=== PATIENT | male | born 1960 | race Caucasian/White ===

== ENCOUNTER 2017-07-26 20:28 | Emergency (ER) | payer OTHER, SELFPAY ==
--- NOTE | 2017-07-26 21:31 | CT ---
CT BRAIN WITHOUT CONTRAST 07/26/17 HISTORY: Trauma. Headache. FINDINGS: No evidence of infarct, hemorrhage, or midline shift is seen. The ventricular size is normal and the basilar cisterns patent. A arachnoid cyst is seen in the right posterior fossa. The bony calvarium is intact. There is mucosal disease in the paranasal sinuses. A small air fluid level is seen in the ri ght maxillary sinus. IMPRESSION: No CT evidence of acute intracranial process. POS: [facility]
--- NOTE | 2017-07-26 21:42 | CT ---
CT CERVICAL SPINE WITH CORONAL AND SAGITTAL REFORMATIONS: 07/26/17 HISTORY: Trauma. Neck pain. FINDINGS/IMPRESSION: No acute fracture of subluxation is seen. There is mucosal disease in the paranasal sinuses. A small air fluid level is seen in the right maxillary sinus. POS: [facility]
--- NOTE | 2017-07-26 21:47 | RAD ---
THORACIC SPINE THREE VIEWS: 07/26/17 HISTORY: Trauma, back pain. FINDINGS/IMPRESSION: No acute fracture or subluxation is identified. POS: [facility]
== END 2017-07-26 21:49 ==
LOC: NAV ERS 20:28
DX: S06.0X0A Concussion without loss of consciousness, initial encounter (principal); S16.1XXA Strain of muscle, fascia and tendon at neck level, initial encounter; F17.210 Nicotine dependence, cigarettes, uncomplicated; F10.129 Alcohol abuse with intoxication, unspecified; V43.52XA Car driver injured in collision with other type car in traffic accident, initial encounter
CPT/HCPCS: 36415; 70450; 72072; 72125

== ENCOUNTER 2019-05-20 10:21 | Emergency (ER) | payer SELFPAY ==
--- NOTE | 2019-05-20 11:16 | RAD ---
Exam: Chest 2 views HISTORY:Cough Comparison: None FINDINGS: Lungs: No masses or consolidation. Cardiac silhouette: Normal size Pulmonary vessels: Normal Pleural Spaces: Clear Pneumothorax: None Osseous abnormalities: None of acuity. IMPRESSION: No focal consolidation.
== END 2019-05-20 12:00 | disposition home or self-care (01) ==
LOC: NAV ERS 10:21
DX: J20.9 Acute bronchitis, unspecified (principal); Z77.120 Contact with and (suspected) exposure to mold (toxic); J32.0 Chronic maxillary sinusitis; K04.7 Periapical abscess without sinus; K02.9 Dental caries, unspecified; K05.10 Chronic gingivitis, plaque induced; F17.210 Nicotine dependence, cigarettes, uncomplicated
CPT/HCPCS: 71046; 94640; J7620

== ENCOUNTER 2020-10-15 02:42 | Observation (INO) | payer OTHER ==
[2020-10-15] MEDS ORDERED: Sodium Chloride 0.9% 1,000 ML ONE (03:26)
[2020-10-15 03:32] LABS: Acetaminophen Less than 6.0 mcg/mL (10.0-30.0); Alcohol 66 mg/dL (Less than 10); Carbon Dioxide 23 mmol/L (22-29); Chloride 98 mmol/L (98-107); Potassium 3.6 mmol/L (3.5-5.1); Salicylate Less than 8.0 mg/dL (15.0-30.0); Sodium 136 mmol/L (136-145)
[2020-10-15 03:33] LABS: Anion Gap 18 mmol/L (10-20); BUN (Urea Nitrogen) Less than 4 mg/dL (8.4-25.7)
[2020-10-15 03:34] LABS: Albumin 4.1 g/dL (3.5-5.0); Bilirubin, Total 1.3 mg/dL (0.2-1.2); Calc. Creatinine Clearance 0 mL/min (70-130); Calcium 9.1 mg/dL (7.8-10.44); Globulin 2.6 g/dL (2.4-3.5); Glucose 98 mg/dL (70-105); Protein, Total 6.7 g/dL (6.0-8.3)
[2020-10-15 03:35] LABS: ALT (SGPT) 135 U/L (8-55); AST (SGOT) 185 U/L (5-34); Alkaline Phosphatase 61 U/L (40-110)
[2020-10-15 03:38] LABS: %Basophils 1.7 % (0.0-1.0); %Eosinophils 8.7 % (0.0-10.0); %Lymphocytes 32.7 % (21.0-51.0); %Monocytes 8.1 % (0.0-10.0); %Neutrophils 48.7 % (42.0-75.0); Hemoglobin 14.4 g/dL (14.0-18.0); Manual Diff?? NO; Mean Corpuscular HGB CONC 32.3 g/dL (32.0-36.0); Mean Corpuscular Hemoglobin 30.4 pg (27.0-31.0); Mean Corpuscular Volume 94.2 fL (78.0-98.0); Mean Platelet Volume 7.4 fL (7.4-10.4); Platelet Count 150 thou/uL (130-400); RBC Distribution Width 13.4 % (11.5-14.5); Red Blood Cell (RBC) Count 4.72 mill/uL (4.70-6.10); White Blood Cell (WBC) Count 5.7 thou/uL (4.8-10.8)
[2020-10-15] MEDS ORDERED: Ondansetron PF 4 MG/2 ML Vial ONE (03:38)
[2020-10-15 03:39] LABS: #Basophils 0.1 thou/uL (0.0-0.2); #Eosinphils 0.5 thou/uL (0.0-0.7); #Lymphocytes 1.9 thou/uL (1.20-3.40); #Monocytes 0.5 thou/uL (0.11-0.59); #Neutrophils 2.8 thou/uL (1.40-6.50)
[2020-10-15 04:08] LABS: Bilirubin Small (Negative); Blood, Urine Negative (Negative); Clarity Clear (Clear); Glucose, Urine (Dipstick) Negative (Negative); Ketone, Urine Trace mg/dL (Negative); Leukocyte Negative (Negative); Nitrite Negative (Negative); Protein, Urine (Dipstick) Trace mg/dL (Neg-Trace); Urobilinogen 0.2 mg/dL (Less than 2); pH, Urine 5.5 (5.0-9.0)
[2020-10-15 04:11] LABS: Amphetamine Not Detected (NotDetected); Barbiturates Screen Not Detected (NotDetected); Benzodiazepine Screen Detected (NotDetected); Cocaine Metabolite Screen Not Detected (NotDetected); Medtox Control Line Valid? VALID (VALID); Methadone Not Detected (NotDetected); Methamphetamine Not Detected (NotDetected); Opiate Screen Not Detected (NotDetected); Oxycodone Screen Not Detected (NotDetected); Phencyclidine (PCP) Not Detected (NotDetected); THC/Cannabinoid Screen Detected (NotDetected); Tricyclic Screen Not Detected (NotDetected)
[2020-10-15 06:59] VITALS: BMI 18.3
[2020-10-15] MEDS ORDERED: Acetaminophen 325 MG TAB PO PRN (07:30)
[2020-10-15] MEDS ORDERED: Ondansetron PF 4 MG/2 ML Vial IVP PRN (07:30)
[2020-10-15] MEDS ORDERED: Ondansetron ODT 4 MG TAB SL PRN (07:30)
[2020-10-15 09:08] LABS: SARS-CoV-2 NAA Rapid Test Not Detected (NotDetected)
[2020-10-15 12:46] VITALS: BP 121/76; TEMP 96.8
== END 2020-10-15 14:40 | disposition home or self-care (01) ==
LOC: NAV ERS 02:42 → NAV ACUTE 06:39
PROVIDERS: ADMIT Family Medicine; ATTEND Family Medicine
DX: R44.1 Visual hallucinations (principal); R44.0 Auditory hallucinations; E86.0 Dehydration; R41.0 Disorientation, unspecified; F13.10 Sedative, hypnotic or anxiolytic abuse, uncomplicated; F12.10 Cannabis abuse, uncomplicated; F17.210 Nicotine dependence, cigarettes, uncomplicated; R74.01 Elevation of levels of liver transaminase levels; Z85.22 Personal history of malignant neoplasm of nasal cavities, middle ear, and accessory sinuses; Z20.822 Contact with and (suspected) exposure to COVID-19
CPT/HCPCS: 0240U; 70450; 80053; 80306; 80307; 81003; 84443; 85025; 93005; 94760; 96374; G0378; J2405; J7050